=== PATIENT | male | born 1970 | race Caucasian/White ===

== ENCOUNTER 2016-08-07 16:43 | Emergency (ER) | payer MEDICARE, MEDICAID | END 2016-08-07 20:04 | disposition home or self-care (01) | LOC: ED 16:43 | DX: H92.02 Otalgia, left ear (principal); I10 Essential (primary) hypertension; E03.9 Hypothyroidism, unspecified; E10.9 Type 1 diabetes mellitus without complications; Z79.4 Long term (current) use of insulin; Z89.512 Acquired absence of left leg below knee; Z89.511 Acquired absence of right leg below knee ==